=== PATIENT | male | born 1990 | race Caucasian/White ===

== ENCOUNTER 2020-07-04 03:14 | Emergency (ER) | payer OTHER ==
[~2020-07-04] VITALS: Ht 182.9 cm; Wt 74.8 kg
[2020-07-04 03:15] VITALS: BP 128/88
[2020-07-04 03:55] LABS: EOSINOPHILS % (AUTO) 2.3 % (0.0-6.0); HEMATOCRIT 41 % (39-51); HEMOGLOBIN 13.7 g/dL (13.5-17.5); LYMPHOCYTES # (AUTO) 1.8 /CMM (0.8-4.8); LYMPHOCYTES % (AUTO) 38.5 % (20.0-44.0); MEAN CORPUSCULAR HGB CONC 33 g/dl (31.0-36.0); MEAN CORPUSCULAR VOLUME 94 fL (80-96); MONOCYTES # (AUTO) 0.5 /CMM (0.1-1.30); MONOCYTES % (AUTO) 9.6 % (2.0-12.0); NEUTROPHILS # (AUTO) 2.3 /CMM (1.8-8.9); NEUTROPHILS % (AUTO) 48.6 % (43.0-81.0); PLATELET COUNT (AUTO) 177 /CMM (150-450); RED BLOOD CELL COUNT(AUTO) 4.42 MIL/uL (4.5-6.0); WHITE BLOOD COUNT (AUTO) 4.8 K/uL (4.3-11.0)
--- NOTE | 2020-07-04 04:30 | NUR ---
Patient discharged to home in stable condition. Written and verbal after care instructions given. Patient verbalizes understanding of instruction.
== END 2020-07-04 04:30 | disposition home or self-care (01) ==
LOC: ER 03:14
DX: R42 Dizziness and giddiness (principal); M79.622 Pain in left upper arm
CPT/HCPCS: 36415; 85025-TC